=== PATIENT | male | born 1970 | race Caucasian/White ===

== ENCOUNTER 2024-08-24 09:12 | Emergency (ER) | payer MEDICAID ==
[~2024-08-24] VITALS: Ht 170.2 cm; Wt 70.0 kg
[2024-08-24 09:37] VITALS: O2SAT 98
[2024-08-24] MEDS ORDERED: IBUP-2741 PO (10:15)
[2024-08-24] MEDS ORDERED: CIPR500T5 MT (10:15)
[2024-08-24 11:06] VITALS: BP 134/80; PULSE 78; RESP 18; TEMP 36.78072; O2SAT 100
== END 2024-08-24 11:07 | disposition home or self-care (01) ==
LOC: ER 09:12
DX: H60.91 Unspecified otitis externa, right ear (principal); E11.9 Type 2 diabetes mellitus without complications; Z90.49 Acquired absence of other specified parts of digestive tract
CPT/HCPCS: 99283